=== PATIENT | female | born 1970 | race Caucasian/White ===

== ENCOUNTER 2017-09-08 12:32 | Emergency (ER) | payer MEDICAID ==
[~2017-09-08] VITALS: Ht 167.6 cm; Wt 101.3 kg
[~2017-09-08 12:32] MED LIST: MULT-658 PO
[2017-09-08 12:39] VITALS: BP 129/84
== END 2017-09-08 14:12 | disposition home or self-care (01) ==
LOC: ED 14:00
DX: J20.9 Acute bronchitis, unspecified (principal); J32.1 Chronic frontal sinusitis; J01.00 Acute maxillary sinusitis, unspecified
CPT/HCPCS: 71046; 99284

== ENCOUNTER 2017-11-02 09:41 | Emergency (ER) | payer MEDICAID ==
[~2017-11-02] VITALS: Ht 167.6 cm; Wt 100.9 kg
[2017-11-02 09:43] VITALS: BP 131/80
== END 2017-11-02 10:22 | disposition home or self-care (01) ==
LOC: ED 10:15
DX: L01.01 Non-bullous impetigo (principal); B00.9 Herpesviral infection, unspecified
CPT/HCPCS: 99283

== ENCOUNTER 2017-11-27 22:04 | Emergency (ER) | payer MEDICAID ==
[~2017-11-27] VITALS: Ht 167.6 cm; Wt 95.3 kg
[2017-11-27 22:06] VITALS: BP 145/92
== END 2017-11-27 22:35 | disposition home or self-care (01) ==
LOC: ED 22:25
DX: S16.1XXA Strain of muscle, fascia and tendon at neck level, initial encounter (principal); X58.XXXA Exposure to other specified factors, initial encounter; Y93.89 Activity, other specified; Y92.89 Other specified places as the place of occurrence of the external cause; Y99.8 Other external cause status
CPT/HCPCS: 99283

== ENCOUNTER 2018-02-28 11:08 | Emergency (ER) | payer MEDICAID ==
[~2018-02-28] VITALS: Ht 167.6 cm; Wt 90.4 kg
[2018-02-28 11:11] VITALS: BP 142/99
[2018-02-28] MEDS ORDERED: IBUPROFEN 200 MG TABLET PO ONE (11:30)
[2018-02-28] MEDS ORDERED: IBUPROFEN 200 MG TABLET ONE (11:52)
== END 2018-02-28 11:57 | disposition home or self-care (01) ==
LOC: ED 11:45
DX: L01.01 Non-bullous impetigo (principal)
CPT/HCPCS: 99283

== ENCOUNTER 2018-07-03 11:44 | Emergency (ER) | payer MEDICAID ==
[~2018-07-03] VITALS: Ht 167.6 cm; Wt 83.6 kg
[2018-07-03 11:48] VITALS: BP 123/90
== END 2018-07-03 12:24 | disposition home or self-care (01) ==
LOC: ED 12:18
DX: L98.499 Non-pressure chronic ulcer of skin of other sites with unspecified severity (principal)
CPT/HCPCS: 99283

== ENCOUNTER 2018-09-09 17:58 | Emergency (ER) | payer MEDICAID ==
[~2018-09-09] VITALS: Ht 172.7 cm; Wt 78.0 kg
[2018-09-09 18:03] VITALS: BP 103/66
--- NOTE | 2018-09-09 18:06 | NUR ---
PT FOUND BY POL[employer] DEPARTMENT [place] WITH NO PANTS ON AND SOILED UNDERWEAR. PT REFUSING TO ANSWER QUESTIONS AND BECAME COMBATIVE WITH [facility] AND POLICE. INITIAL 4 MG OF VERSED AND 5 OF HALDOL GIVEN IM WITH AN ADDITIONAL 2MG GIVEN IV UPON ARRIVAL TO HOSPITAL.
--- NOTE | 2018-09-09 18:21 | NUR ---
PT IN 4 POINT HARD RESTRAINTS AT THIS TIME.
--- NOTE | 2018-09-09 18:30 | NUR ---
PT REMOVED FROM RSTRAINTS.
--- NOTE | 2018-09-09 19:20 | NUR ---
PT ASLEEP COOPERATIVE AND AWAYTING MTF TO RE RECHECKED BY ERP.
[2018-09-09 19:37] LABS: BASOPHILS # (AUTO) 0.01 x10^3/uL (0-0.1); BASOPHILS % (AUTO) 0 % (0-1); EOSINOPHILS # (AUTO) 0.04 x10^3/uL (0-0.4); EOSINOPHILS % (AUTO) 1 % (1-7); LYMPHOCYTES # (AUTO) 1.91 x10^3/uL (1-3.4); LYMPHOCYTES % (AUTO) 19 % (22-44); MD NO; MEAN CORPUSCULAR HEMOGLOBIN 28.8 pg (27.0-34.8); MEAN CORPUSCULAR HGB CONC 33.9 g/dL (32.4-35.8); MEAN PLATELET VOLUME 8.5 fL (7.4-10.4); MONOCYTES # (AUTO) 0.39 x10^3/uL (0.2-0.8); MONOCYTES % (AUTO) 4 % (2-9); NEUTROPHILS % (AUTO) 76 % (42-75); PLATELET COUNT 247 x10^3/uL (130-400); RED BLOOD COUNT 4.77 x10^6/uL (3.82-5.3); RED CELL DISTRIBUTION WIDTH 13.4 % (9.6-15.2)
[2018-09-09 19:47] LABS: ALBUMIN 4.2 g/dL (3.4-5.0); ANION GAP 12 mmol/L (5-15); CHLORIDE 110 mmol/L (98-107)
[2018-09-09 19:51] LABS: ALANINE AMINOTRANSFERASE 40 U/L (12-78); ALKALINE PHOSPHATASE 78 U/L (45-117); BILIRUBIN,TOTAL 0.3 mg/dL (0.2-1.0); CREATININE 0.83 mg/dL (0.55-1.02); SALICYLATE LEVEL < 1.7 mg/dL (2.8-20.0); TOTAL PROTEIN 7.7 g/dL (6.4-8.2)
[2018-09-09 19:52] LABS: ACETAMINOPHEN < 2 mcg/mL (10-30)
[2018-09-09] MEDS ORDERED: SODIUM CHLORIDE 0.9% 1,000ML IVBOLUS ONE (20:00)
--- NOTE | 2018-09-09 20:29 | NUR ---
PT ASLEEP IN NO DISTRESS AND REMAINS A MTF.
--- NOTE | 2018-09-09 21:33 | NUR ---
PT AWAKE AND WALKING WITH A STEADY GATE. PT GIVEN CLEAN PANTS AND TAXI RIDE HOME PT IS NO LONGER SI OR HI AND JUST WANTS TO GO HOME.
== END 2018-09-09 21:33 | disposition home or self-care (01) ==
LOC: ED 21:33
DX: F23 Brief psychotic disorder (principal)
CPT/HCPCS: 36415; 80053; 80307; 80329; 85025; 99283; G0480

== ENCOUNTER 2019-01-19 08:02 | Emergency (ER) | payer MEDICAID ==
--- NOTE | 2019-01-19 08:24 | NUR ---
No answer in lobby x1
--- NOTE | 2019-01-19 08:26 | NUR ---
No answer in lobby x2.
--- NOTE | 2019-01-19 08:28 | NUR ---
No answer in lobby x3. Restrooms checked. Pt not in lobby @[phone].
--- NOTE | 2019-01-19 08:36 | NUR ---
No answer in lobby x4. @ [phone]
== END 2019-01-19 08:37 | disposition left against medical advice (07) ==
LOC: ED 08:31
DX: M79.671 Pain in right foot (principal); M79.672 Pain in left foot; Z53.21 Procedure and treatment not carried out due to patient leaving prior to being seen by health care provider

== ENCOUNTER 2019-03-22 08:18 | Emergency (ER) | payer MEDICAID ==
[~2019-03-22] VITALS: Ht 167.6 cm; Wt 73.2 kg
[2019-03-22 08:23] VITALS: BP 145/89
== END 2019-03-22 09:10 | disposition home or self-care (01) ==
LOC: ED 09:04
DX: L03.113 Cellulitis of right upper limb (principal); L03.116 Cellulitis of left lower limb; L03.115 Cellulitis of right lower limb; L03.114 Cellulitis of left upper limb; F17.210 Nicotine dependence, cigarettes, uncomplicated
CPT/HCPCS: 99283

== ENCOUNTER 2019-09-10 08:30 | Emergency (ER) | payer MEDICAID ==
[~2019-09-10] VITALS: Ht 167.6 cm; Wt 74.0 kg
[2019-09-10 08:39] VITALS: BP 146/80
[2019-09-10 09:41] LABS: MICROSCOPIC AUTO
[2019-09-10 09:46] LABS: CULTURE INDICATED? YES
== END 2019-09-10 10:40 | disposition home or self-care (01) ==
LOC: ED 09:38
DX: S39.012A Strain of muscle, fascia and tendon of lower back, initial encounter (principal); N30.00 Acute cystitis without hematuria; X58.XXXA Exposure to other specified factors, initial encounter; Y93.89 Activity, other specified; Y92.89 Other specified places as the place of occurrence of the external cause; Y99.8 Other external cause status
CPT/HCPCS: 81001; 82962; 87077; 87086; 87186; 99283

== ENCOUNTER 2020-02-24 07:43 | Emergency (ER) | payer MEDICAID ==
--- NOTE | 2020-02-24 07:47 | NUR ---
NOT IN LOBBY [phone]
--- NOTE | 2020-02-24 07:56 | NUR ---
[id number] CALLED 2X
--- NOTE | 2020-02-24 08:15 | NUR ---
PT NIL AT 0815. PER SECURITY, PT LEFT ER WR IMMEDIATELY AFTER REGISTERING.
== END 2020-02-24 08:18 | disposition left against medical advice (07) ==
LOC: ED 08:00
DX: J45.909 Unspecified asthma, uncomplicated (principal); Z53.21 Procedure and treatment not carried out due to patient leaving prior to being seen by health care provider

== ENCOUNTER 2020-11-21 07:27 | Emergency (ER) | payer MEDICAID ==
--- NOTE | 2020-11-21 07:30 | NUR ---
FORENSIC LOCKSMITH: [id number]
--- NOTE | 2020-11-21 07:37 | NUR ---
NIL X2 @ [phone]
--- NOTE | 2020-11-21 07:56 | NUR ---
CHUCKING MACHINE SET UP OPERATOR: [id number]
== END 2020-11-21 08:12 | disposition left against medical advice (07) ==
LOC: ED 08:06
DX: J02.9 Acute pharyngitis, unspecified (principal); Z53.21 Procedure and treatment not carried out due to patient leaving prior to being seen by health care provider